=== PATIENT | female | born 2000 | race Two or more races ===

== ENCOUNTER 2023-05-01 15:02 | Emergency (ER) | payer OTHER ==
[~2023-05-01] VITALS: Ht 165.1 cm; Wt 65.8 kg
== END 2023-05-01 18:01 | disposition home or self-care (01) ==
LOC: ER 15:02
DX: S96.911A Strain of unspecified muscle and tendon at ankle and foot level, right foot, initial encounter (principal); X58.XXXA Exposure to other specified factors, initial encounter; Y93.9 Activity, unspecified; Y92.9 Unspecified place or not applicable; Y99.9 Unspecified external cause status